=== PATIENT | male | born 1980 | race Caucasian/White ===

== ENCOUNTER 2017-11-14 20:47 | Emergency (ER) | payer BC, OTHER ==
[~2017-11-14] VITALS: Ht 180.3 cm; Wt 135.0 kg
[~2017-11-14 20:47] MED LIST: HYDR50TA94 PO; PRED20 PO; Z.0.NO CURRENT MEDS
[2017-11-14 20:53] VITALS: BP 149/82; PULSE 98; RESP 18; TEMP 98; TEMP 99.6
[2017-11-14] MEDS ORDERED: TETANUS/DIPHTHERIA TOXOID ADULT 0.5 ML VIAL IM ONE (21:00)
--- NOTE | 2017-11-14 21:31 | RADRPT ---
EXAM DATE: 11/14/2017 9:19 PM EDT AGE/SEX: 37 years / Male INDICATIONS: Pain. CLINICAL DATA: This is the patient's initial encounter. Patient reports that signs and symptoms have been present for 1 day and indicates a pain score of 6/10. MEDICAL/SURGICAL HISTORY: None. None. COMPARISON: No prior exams available for comparison. FINDINGS: There is a relatively nondisplaced fracture through the distal portion middle phalanx fifth finger wi thout dislocation. Fracture extends intra-articular. No other fractures identified. CONCLUSION: Nondisplaced intra-articular fracture through distal portion middle phalanx right fifth finger. Electronically signed by: Brodie Walters MD 11/14/2017 9:30 PM EDT
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
[2017-11-14] MEDS ORDERED: AUGM875T3 PO (22:44)
== END 2017-11-14 22:47 | disposition home or self-care (01) ==
LOC: NEPE 20:47
DX: S51.852A Open bite of left forearm, initial encounter (principal); S62.656A Nondisplaced fracture of middle phalanx of right little finger, initial encounter for closed fracture; Y04.1XXA Assault by human bite, initial encounter; Y35.891A Legal intervention involving other specified means, law enforcement official injured, initial encounter; Z23 Encounter for immunization
CPT/HCPCS: 29125; 73130; 90471; 90714